=== PATIENT | female | born 1985 | race Caucasian/White ===

== ENCOUNTER 2021-07-17 09:03 | Emergency (ER) | payer MEDICAID ==
[~2021-07-17] VITALS: Ht 162.6 cm; Wt 102.0 kg
--- NOTE | 2021-07-17 09:30 | PHYS DOC ---
Past History Past Medical History: No Pertinent History Past Surgical History: , Other Smoking: Non-smoker Alcohol Use: None Drug Use: None General Adult EDM: Chief Complaint: ABDOMINAL PAIN HPI: HPI: Patient is a 36-year-old female who presents with sudden onset of right flank and right lower quadrant abdominal pain. She reports nausea, but no vomiting. She denies dizziness or diaphoresis. She reports dark urine. She reports some urinary urgency, denies dysuria. She denies flank or abdominal rash. She denies chest pain, cough, dyspnea. She denies dizziness or diaphoresis. She denies syncope or near syncope. No previous similar symptoms. She reports that she felt well prior to onset of symptoms. Symptoms began about 45 minutes prior to arrival, while she was at work. She denies any abdominal or flank trauma or injury. She denies incontinence of bowel or bladder. She denies any bowel habit changes. LMP was last week. No previous abdominal surgeries. Review of Systems: Review of Systems: Constitutional: Denies fever or chills HENT: Denies nasal congestion or sore throat Respiratory: Denies cough or shortness of breath Cardiovascular: Denies chest pain or edema GI: Right flank pain, right lower quad abdominal pain, nausea, no vomiting, no bowel habit changes. : No hematuria, urinary urgency. Denies dysuria. Denies vaginal discharge or bleeding Musculoskeletal: Right flank pain. Integument: Denies rash, denies diaphoresis Neurologic: Denies headache, focal weakness or sensory changes, denies dizziness or syncope. Psychiatric: Denies depression or anxiety Allergies: Allergies: Allergies Coded Allergies Type Severity Reaction Last Updated Verified No Known Drug Allergies 12/07/17 No Physical Exam: PE: Constitutional: Well developed, well nourished, nontoxic, appears uncomfortable and in pain. HENT: Normocephalic, atraumatic, oropharynx is patent and clear, mucous membranes moist Eyes: Clear are anicteric, conjunctive are normal Neck: Normal range of motion, no tenderness, supple, no stridor. [] Cardiovascular:Heart rate regular rhythm, +2 radial and +2 posterior tibial pulses bilaterally. Lungs & Thorax: Lungs are clear to auscultation bilaterally without rales, rhonchi or wheezes. No evidence of respiratory distress peer Abdomen: Abdomen is obese, soft, nondistended, mild right lower quadrant tenderness to palpation, no guarding or rebound or rigidity. Right-sided CVA tenderness is noted. No palpable pulsatile mass. No flank abdominal ecchymoses. No abdominal or flank rash noted. No pain or tenderness out of proportion to exam findings. Skin: Warm, dry, no erythema, no rash. No jaundice. Back: No tenderness, right-sided CVA tenderness. Extremities: No tenderness, no cyanosis, no clubbing, ROM intact, no edema. No calf tenderness. Neurologic: Alert and oriented X 3, normal motor function, normal sensory function, no focal deficits noted. [] Psychologic: Affect normal, judgement normal, mood normal. [] Current Patient Data: Vital Signs: Vital Signs Date Time Temp Pulse Resp B/P (MAP) Pulse Ox O2 Delivery O2 Flow Rate FiO2 07/17/21 09:08 97.8 89 16 130/79 (96) 97 Room Air EKG: EKG: [] Radiology/Procedures: Radiology/Procedures: IMAGING REPORT Signed PATIENT: KATLYN HARRIS SACCOUNT: [id number] : 1985 LOCATION: ER AGE: 36 SEX: F EXAM STATUS: REG ER ORD. PHYSICIAN: REINA LUI DO REASON: RLQ pain, OMNI 300, 75ml PROCEDURE: CT ABD PELV W/ IV CONTRST ONLY CT ABDOMEN+PELVIS W History: Right lower quadrant pain. Comparison: None. Technique: CT of the abdomen and pelvis with intravenous contrast. Findings: There is enlargement and delayed enhancement of the right kidney with mild hydronephrosis. A 5 mm diameter by 6 mm long stone is present at the right ureteropelvic junction. No residual stones within the right there is hypoattenuation at the left renal calyces which may represent early contrast excretion. No distal ureteral less. Appropriately positioned intrauterine device at the fundal endometrium. Decompressed bladder. Unremarkable adnexa. The lung bases are clear. The liver, gallbladder, pancreas, spleen and adrenal glands are normal. The stomach, small bowel and appendix are unremarkable. The colon is within normal limits. No abdominal pelvic adenopathy. No free fluid or free air. The vasculature is unremarkable. Soft tissues and osseous structures are within normal limits. Impression: 1. Right ureteropelvic junction 5 x 6 mm stone causing mild right hydronephrosis. ------ Exposure: One or more of the following individualized dose reduction techniques were utilized for this examination: 1. Automated exposure control 2. Adjustment of the mA and/or kV according to patient size 3. Use of iterative reconstruction technique. Electronically signed by: Rohit Khan MD (07/17/2021 10:03 AM) [id number] DICTATED AND SIGNED BY: ROHIT KHAN MD DATE: 07/17/2159 CC: REINA LUI DO; PCP,SUSU ~ Heart Score: C/O Chest Pain: No Risk Factors: Risk Factors: DM, Current or recent (<one month) smoker, HTN, HLP, family history of CAD, obesity. Risk Scores: Score 0 - 3: 2.5% MACE over next 6 weeks - Discharge Home Score 4 - 6: 20.3% MACE over next 6 weeks - Admit for Clinical Observation Score 7 - 10: 72.7% MACE over next 6 weeks - Early Invasive Strategies Course & Med Decision Making: Course & Med Decision Making Pertinent Labs and Imaging studies reviewed. (See chart for details) The patient is given IV fluids, IV morphine, IV Toradol. Nausea is improved, she still having ongoing pain, though it is somewhat improved. She has a 5 x 6 mm stone in her right proximal ureter, with hydronephrosis. She will require hospitalization for pain control, and statistically she is less likely to pass this sizable stone. She is requesting transfer to [facility]. There are no urology service here at this hospital. I spoke with [facility], she is accepted for admission by urologist, Dr. Carson. Justin Disclaimer: Justin Disclaimer: This electronic medical record was generated, in whole or in part, using a voice recognition dictation system. Departure Departure: Impression: Primary Impression: Right ureteral stone Additional Impressions: Hydronephrosis, right Renal colic on right side Disposition: [address] [place] [address] HOSPITAL ([facility]) Condition: STABLE Referrals: PCP,SUSU (PCP) REINA LUI DO Jul 17, 2021 09:30
[2021-07-17 09:44] LABS: BASO # 0.1 x10^3/uL (0.0-0.2); BASO % 1 % (0-3); EOS # 0.1 x10^3/uL (0.0-0.7); EOS % 1 % (0-3); HEMATOCRIT 35.7 % (36.0-47.0); HEMOGLOBIN 11.8 g/dL (12.0-15.5); LYMPH # 3.2 x10^3/uL (1.0-4.8); LYMPH % 33 % (24-48); MEAN CORPUSCULAR HEMOGLOBIN 28 pg (25-35); MEAN CORPUSCULAR HGB CONC 33 g/dL (31-37); MEAN CORPUSCULAR VOLUME 86 fL (79-100); MONO # 0.4 x10^3/uL (0.0-1.1); MONO % 5 % (0-9); NEUT # 5.8 x10^3uL (1.8-7.7); NEUT % 61 % (31-73); PLATELET COUNT 330 x10^3/uL (140-400); RED BLOOD COUNT 4.14 x10^6/uL (3.50-5.40); RED CELL DISTRIBUTION WIDTH 15.6 % (11.5-14.5); WHITE BLOOD COUNT 9.6 x10^3/uL (4.0-11.0)
[2021-07-17] MEDS ORDERED: IV NORMAL SALINE 1,000ML 1,000 ML IV ONE (09:45)
[2021-07-17] MEDS ORDERED: ONDANSETRON PF 4 MG/2 ML VIAL. IVP ONE (09:45)
[2021-07-17] MEDS ORDERED: MORPHINE SULFATE 4 MG/ML DISP.SYRIN. IV ONE ×4 (09:45→16:15)
[2021-07-17] MEDS ORDERED: IOHEXOL 300 MG/ML 75 ML VIAL. IV ONE (09:45)
[2021-07-17 09:46] LABS: CALCIUM 9.2 mg/dL (8.5-10.1); CREATININE 0.7 mg/dL (0.6-1.0); GFR 94.7; POTASSIUM 3.7 mmol/L (3.5-5.1)
[2021-07-17 09:52] LABS: ALBUMIN 4.1 g/dL (3.4-5.0); ALBUMIN/GLOBULIN RATIO 1.1 (1.0-1.7); TOTAL BILIRUBIN 0.3 mg/dL (0.2-1.0); TOTAL PROTEIN 7.8 g/dL (6.4-8.2)
[2021-07-17 09:53] LABS: CLARITY,URINE TURBID; COLOR,URINE BROWN
[2021-07-17 09:54] LABS: BACTERIA,URINE FEW /HPF (0-FEW); RBC,URINE TNTC /HPF (0-2); SQUAMOUS EPITHELIAL CELL,UR MANY /LPF; U PREG PATIENT NEGATIVE (NEG)
[2021-07-17] MEDS ORDERED: CONTRAST GIVEN. MC PRN (10:00)
--- NOTE | 2021-07-17 10:05 | RAD ---
CT ABDOMEN+PELVIS W History: Right lower quadrant pain. Comparison: None. Technique: CT of the abdomen and pelvis with intravenous contrast. Findings: There is enlargement and delayed enhancement of the right kidney with mild hydronephrosis. A 5 mm claudy meter by 6 mm long stone is present at the right ureteropelvic junction. No residual stones within th e right there is hypoattenuation at the left renal calyces which may represent early contrast excreti on. No distal ureteral less. Appropriately positioned intrauterine device at the fundal endometrium. Decompressed bladder. Unremarkable adnexa. The lung bases are clear. The liver, gallbladder, pancreas, spleen and adrenal glands are normal. The stomach, small bowel and appendix are unremarkable. The colon is within normal limits. No abdominal pelvic adenopathy. No free fluid or free air. The vasculature is unremarkable. Soft tissues and osseo us structures are within normal limits. Impression: 1. Right ureteropelvic junction 5 x 6 mm stone causing mild right hydronephrosis. ------ Exposure: One or more of the following individualized dose reduction techniques were utilized for thi s examination: 1. Automated exposure control 2. Adjustment of the mA and/or kV according to patient size 3. Use of iterative reconstruction technique. Electronically signed by: Rohit Smith MD (07/17/2021 10:03 AM) [id number]
[2021-07-17] MEDS ORDERED: KETOROLAC 15 MG/ML VIAL. IVP ONE (10:15)
[2021-07-17 12:00] VITALS: BP 136/85
== END 2021-07-17 17:16 | disposition short-term general hospital (02) ==
LOC: ER 09:03
DX: N13.2 Hydronephrosis with renal and ureteral calculous obstruction (principal); Z98.890 Other specified postprocedural states
CPT/HCPCS: 36415; 74177; 80053; 81001; 81025; 83690; 85025; 87086; 96361; 96374; 96375; 96376; 99285; J1885; J2270; J2405; J7030; Q9967